=== PATIENT | female | born 1945 | race Caucasian/White ===

== ENCOUNTER 2016-07-19 01:51 | Emergency (ER) | payer MEDICAID, MEDICARE ==
[2016-07-19 02:28] VITALS: BMI 41.1
[2016-07-19] MEDS ORDERED: ONDANSETRON HCL 4 MG ODT TAB PO ONE (02:57)
[2016-07-19] MEDS ORDERED: OXYCODONE HCL 5 MG TABLET PO ONE (02:57)
--- NOTE | 2016-07-19 03:04 | EDPRACDOC ---
- History of Present Illness Onset: 1800 HPI: PT STATES SHE GOT TRIPPED UP FELL HIT THE BACK OF HER HEAD ON FURNITURE THEN LANDED ON HER BUTT. PT C/O HEADACHE NECK PAIN, LOW BACK PAIN AND TAILBONE PAIN. NO NUMBNESS OR TINGLING DOWN LEGS NO LOSS OF BOWEL OR BLADDER AT THIS TIME. PT A &OX3. NO N/V OR LOC. Pain Severity: Reports: Moderate Injuries/Pain Location: Reports: head, neck, back, other (TAILBONE) Reason for Fall: Reports: tripped Loss of Consciousness: no loss of consciousness Associated Symptoms (Fall): Reports: neck pain, other (TAILBONE AND LOWER BACK PAIN) <Michael Novak - Last Filed: 07/19/16 03:02> <Patricia Farris - Last Filed: 07/19/16 04:35> - General Chief Complaint: Fall Stated Complaint: FALL: HEAD AND TAILBONE PAIN Time Seen by Provider: 07/19/16 02:40 - History of Present Illness Allergies/Adverse Reactions: Allergies hydromorphone HCl [From Dilaudid] Allergy (Verified 04/06/16 02:35) Unknown morphine Allergy (Verified 04/06/16 02:35) Unknown Home Medications: Ambulatory Orders Alprazolam [Xanax] 1 mg PO Q8H PRN 05/24/15 Colesevelam HCl [Welchol] 1,250 mg PO TID 05/24/15 Escitalopram Oxalate [Lexapro] 10 mg PO DAILY 05/24/15 Estrogens [Premarin 1.25 mg Tablet] 1.25 mg PO DAILY 05/24/15 Furosemide [Lasix] 40 mg PO BID 05/24/15 Glimepiride [Amaryl] 4 mg PO DAILY 05/24/15 Insulin Glargine,Hum.rec.anlog [Lantus] 50 units SQ HS 05/24/15 Isosorbide Mononitrate [Imdur] 60 mg PO DAILY 05/24/15 Levothyroxine Sodium [Synthroid] 200 mcg PO DAILY 05/24/15 Liraglutide [Victoza 0.6 mg/0.1 ml] 1.2 mg SQ DAILY 05/24/15 Metoprolol Tartrate 25 mg PO BID 05/24/15 Oxycodone HCl/Acetaminophen [Percocet 10-325 mg Tablet] 1 each PO Q8H PRN Sertraline HCl [Zoloft] 50 mg PO DAILY 05/24/15 Simvastatin [Zocor] 10 mg PO DAILY 05/24/15 Spironolactone [Aldactone] 25 mg PO DAILY 05/24/15 Albuterol Sulfate MDI [Proventil HFA] 1 puff INH Q4 PRN 04/05/16 Aspirin 325 mg PO DAILY 04/05/16 Fluticasone/Salmeterol [Advair 250-50] 1 inh INH BID 04/05/16 Gabapentin 600 mg PO BID PRN 04/05/16 Insulin Glulisine [Apidra] 60 units SQ .PRN PRN 04/05/16 Losartan/Hydrochlorothiazide [Losartan-Hctz 50-12.5 mg Tab] 1 each PO DAILY Meclizine HCl 25 mg PO TID PRN 04/05/16 Potassium Chloride [Klor-Con 10] 10 meq PO DAILY 04/05/16 Ranolazine [Ranexa] 1,000 mg PO BID 04/05/16 Tiotropium [place] [Spiriva] 18 mcg INH DAILY 04/05/16 Cephalexin Monohydrate [Keflex] 500 mg PO Q6H #40 cap 07/19/16 Hydrocodone Bit/Acetaminophen [Hydrocodon-Acetaminophen 5-325] 1 - 2 tab PO Q4H PRN #20 tab 07/19/16 ED Past Medical History - History Reviewed Yes Nurses notes reviewed and agree except as marked Travel Outside of [place] in the Last 3 Months?: No - Patient Medical History Neurological History: Reports: Cerebrovascular Accident Cardiac History: Reports: Atrial Fibrillation, Hypertension, Congestive Heart Failure, Cardiac Catheterization, Hypercholesterolemia Respiratory History: Reports: COPD. Denies: Pneumonia GI/ History: Reports: Urinary Tract Infection, Gastroesophageal Reflux Psychological History: Reports: Depression, Anxiety. Denies: Bipolar Disorder, Substance Use Disorder Systemic History: Reports: Diabetes, Hypothyroidism. Denies: Cancer Surgical History: Reports: Appendectomy, Cholecystectomy, Cardiac Catheterization, Tonsillectomy/Adnoidectomy - Family Medical History Reports: Hypertension (dtr), Diabetes (dtr), Cancer (dtr: brst [place]), Cardiac Disorders (Younger sister and a daughter with coronary artery disease.). Denies : Stroke - Social Medical History Smoking Status: Never smoker Social History: Denies: Substance Use Disorder ETOH: None Substance Abuse: None Lives With: Other Lives In: Home <Michael Novak - Last Filed: 07/19/16 03:02> EDM Review of Systems - Review of Systems ROS Negative Except as Marked: Yes All systems reviewed and were negative except as marked Constitutional: No Symptoms Reported. negative: Fever, Chills, Weakness, Fatigue, Loss of Appetite Eyes: No Symptoms Reported. negative: Redness, Blurred Vision, Double Vision, Discharge, Pain, Light Sensitive, Photophobia Ears: No Symptoms Reported. negative: Pain, Hearing Loss, Drainage, Ear Pulling Throat: No Symptoms Reported. negative: Pain, Swelling Nose: No Symptoms Reported. negative: Congestion, Bleeding, Discharge, Injection, Swelling, Deformity, Ecchymosis, Tender, Abrasion, Laceration Mouth: No Symptoms Reported. negative: Pain, Drooling Respiratory: No Symptoms Reported. negative: Cough, Brassy Cough, Barky Cough, Shortness of Breath, Wheezing, Hemoptysis Cardiovascular: No Symptoms Reported. negative: Chest Pain, Palpitations, Syncope, Edema, Orthopnea, PND, Skin Mottling, Cyanosis Gastrointestinal: No Symptoms Reported. negative: Pain, Constipation, Nausea, Vomiting, Diarrhea, Melena, Formula Intolerance Genitourinary: No Symptoms Reported. negative: Dysuria, Hematuria, Frequency, Discharge, Bleeding, Testicular Pain, Neurological: No Symptoms Reported. negative: Headache, Dizziness, Seizure, Numbness, Weakness, Speech Difficulty, Gait Difficulty Musculoskeletal: Back, Neck, Other (TAILBONE PAIN). negative: Arm, Ankle, Chestwall, Elbow, Forearm, Femur, Foot, Hand, Hip, Knee, Leg, Pelvis, Ribs, Shoulder, Wrist Integumentary: No Symptoms Reported. negative: Itching, Rash, Bruising, Wound Allergic/Immunologic: No Symptoms Reported. negative: Hives, Itching Hematologic: No Symptoms Reported. negative: Lymphadenopathy, Easy Bruising, Easy Bleeding Endocrine: No Symptoms Reported. negative: Weight Gain, Weight Loss Psychiatric: No Symptoms Reported. negative: Anxiety, Depression, Hallucinations, Insomnia, Suicidal <Michael Novak - Last Filed: 07/19/16 03:02> - Physical Exam Constitutional: No apparent distress, Alert (Awake) Oriented to: Time, Person, Place Last recorded Vital Signs: Last Vital Signs Temp 97.9 F 07/19/16 02:09 Pulse 67 07/19/16 02:09 Resp 20 07/19/16 02:09 BP 119/61 07/19/16 02:09 Pulse Ox 96 07/19/16 02:09 Oxygen Pulse Oxygen Saturation 96 O2 Device Room Air Oxygen Flow Rate Fraction of Inspired Oxygen ( FIO2) - HEENT Head: Normal ( normocephalic) Eye Exam: Normal (PERRL, EOMI, Sclera white) Oropharynx: Normal (Pharynx:Moist without exudate,Gums-no swelling) Tympanic Membrane: Normal ENT EAC: Normal TMJ: Normal Nose: No Symptoms Reported (septum midline) Neck: Normal (FROM, trachea at midline) - Respiratory/Cardiovascular Respiratory: Normal - CTA (BBS clear to auscultation without adventitious sounds ) Cardiovascular: Normal (RRR without murmur, gallop or rub) - GI Auscultation: Normal (NABS) Palpation: Normal (Soft,No rebound or guarding, non distended) Tenderness: Non tender Briggs's Sign: Negative - Bladder: Normal - Musculoskeletal Back: Lumbar TTP Extremities: Normal (Normal tone, Pulses 2+ No cyanosis or edema, FROM) Musculoskeletal Comment: MILD TENDERNESS TO CERVICAL SPINE - Integumentary Skin: Normal, Warm, Dry Lymphatics: Normal (no adenopathy) - Neurologic Memory Impaired: Normal Motor Function: Normal (Normal tone, Pulses 2+ No cyanosis or edema, FROM) Cranial Nerve: Normal (CN II-X11 intact sensation, strength 5/5) Cerebellar: Normal Mood Description: Normal Perception: Normal <Michael Novak - Last Filed: 07/19/16 03:02> - Physical Exam Last recorded Vital Signs: Last Vital Signs Temp 97.9 F 07/19/16 02:09 Pulse 67 07/19/16 02:09 Resp 20 07/19/16 02:09 BP 119/61 07/19/16 02:09 Pulse Ox 96 07/19/16 02:09 Oxygen Pulse Oxygen Saturation 96 O2 Device Room Air Oxygen Flow Rate Fraction of Inspired Oxygen ( FIO2) <Patricia Farris - Last Filed: 07/19/16 04:35> ED Injury/Fall Exam - Physical Exam Head Injury: tenderness (OCCIPITAL REGION AT BASE OF SKULL) Extremity Exam: no evidence of injury Skin: Normal - Abbi Coma Score Best Eye Response ([place]): (4) open spontaneously Best Verbal Response ([place]bi): (5) oriented Best Motor Response (Abbi): (6) obeys commands [place] Total: 15 <Michael Novak - Last Filed: 07/19/16 03:02> - Differential Diagnosis Contusion, Fall, Fracture, Mechanical Fall, Sprain, Strain <Michael Novak - Last Filed: 07/19/16 03:02> - Results Urine Color Yellow 07/19/16 03:45 Urine Clarity Sl cldy 07/19/16 03:45 Urine pH 6.0 (5.0-8.0) 07/19/16 03:45 Ur Specific [place] 1.020 (1.003-1.035) 07/19/16 03:45 Urine Protein 1+ (NEG/TRACE) H 07/19/16 03:45 Urine Glucose (UA) Trace (NEGATIVE) 07/19/16 03:45 Urine Ketones Neg (NEGATIVE) 07/19/16 03:45 Urine Occult Blood Neg (NEG/TRACE) 07/19/16 03:45 Urine Nitrite Neg (NEGATIVE) 07/19/16 03:45 Urine Bilirubin Neg (NEGATIVE) 07/19/16 03:45 Urine Urobilinogen <2.0 MG/DL (0-1) 07/19/16 03:45 Ur Leukocyte Esterase 2+ (NEGATIVE) H 07/19/16 03:45 Urine RBC 2-5 (0-5) 07/19/16 03:45 Urine WBC Tntc (0-5) H 07/19/16 03:45 Ur Epithelial Cells 1+ 07/19/16 03:45 Urine Bacteria 4+ (NEG/FEW) H 07/19/16 03:45 Hyaline Casts 10-20 (0-2) H 07/19/16 03:45 Urine Mucus Sm amt (NEG/OCC) 07/19/16 03:45 Lab Results 07/19/16 03:45 Urine Color Yellow Urine Clarity Sl cldy Urine pH 6.0 Ur Specific [place] 1.020 Urine Protein 1+ H Urine Glucose (UA) Trace Urine Ketones Neg Urine Occult Blood Neg Urine Nitrite Neg Urine Bilirubin Neg Urine Urobilinogen <2.0 Ur Leukocyte Esterase 2+ H Urine RBC 2-5 Urine WBC Tntc H Ur Epithelial Cells 1+ Urine Bacteria 4+ H Hyaline Casts 10-20 H Urine Mucus Sm amt - Diagnostic Imaging Pelvis Image interpreted by: Radiologist Patient Name: IESHA SEWELL LOC: ED : 1945 AGE: 70 Order Date:07/19/16 Date of Service:06/23 Report # [id number] Ord Physician: Michael Novak Exam # [id number] Emergency Physician: Provider,ER Exam(s): [id number] RAD/DG SACRUM/COCCYX 2+V CLINICAL DATA: Lost balance and fell on tailbone, now with sacrococcygeal pain. EXAM: SACRUM AND COCCYX - 2+ VIEW COMPARISON: CT reformats 06/18/2016 FINDINGS: There is cortical offset at the sacrococcygeal junction most concerning for acute minimally displaced fracture. These is new from prior CT. The sacral ala are maintained. Sacroiliac joints are congruent. IMPRESSION: Minimally displaced fracture at the sacrococcygeal junction. Electronically Signed By: Olga Lidia Gonsales M.D. On: 07/19/2016 03:43 Electronically Signed By: Olga Lidia Gonsales MD Electronically Signed Date/Time: Dictate Date/Time: 07/19/16340 Technologist: Rebecca Purdy Transcribed By: Coleman Transcribed Date/Time: 07/19/16 0343 Head Image interpreted by: Radiologist Patient Name: IESHA SEWELL LOC: ED : 1945 AGE: 70 Order Date:07/19/16 Date of Service:06/23 Report # [id number] Ord Physician: Michael Novak Exam # [id number] Emergency Physician: Patricia Farris MD Exam(s): [id number] CT/CT HEAD-CT CERV SPINE W/O CM CLINICAL DATA: 70-year-old female with fall EXAM: CT HEAD WITHOUT CONTRAST CT CERVICAL SPINE WITHOUT CONTRAST TECHNIQUE: Multidetector CT imaging of the head and cervical spine was performed following the standard protocol without intravenous contrast. Multiplanar CT image reconstructions of the cervical spine were also generated. COMPARISON: Head CT dated 06/18/2016 FINDINGS: CT HEAD FINDINGS The ventricles and sulci are appropriate in size for patient's age. Mild periventricular and deep white matter hypodensities represent chronic microvascular ischemic changes. Small stable right cerebellar old infarct. There is no intracranial hemorrhage. No mass effect or midline shift identified. There is complete opacification of the frontal sinuses. The remainder of the paranasal sinuses and mastoid air cells are well aerated. The calvarium is intact. CT CERVICAL SPINE FINDINGS There is no acute fracture or subluxation of the cervical spine.Multilevel degenerative changes.The odontoid and spinous processes are intact.There is normal anatomic alignment of the C1-C2 lateral masses. The visualized soft tissues appear unremarkable. IMPRESSION: No acute intracranial hemorrhage. Mild age-related atrophy and chronic microvascular ischemic disease. No acute/traumatic cervical spine pathology. Electronically Signed By: Francis Kumar M.D. On: 07/19/2016 04:07 Electronically Signed By: Francis Kumar MD Electronically Signed Date/Time: [id number] Dictate Date/Time: 07/19/16 0355 Technologist: Jolanta Mariano Transcribed By: Coleman Transcribed Date/Time: 07/19/16 0407 L-Spine Image interpreted by: Radiologist Patient Name: IESHA SEWELL LOC: ED : 1945 AGE: 70 Order Date:07/19/16 Date of Service:06/23 Report # [id number] Ord Physician: Michael Novak Exam # [id number] Emergency Physician: Provider,ER Exam(s): [id number] RAD/DG LUMBAR SPINE COMPLETE 4+V CLINICAL DATA: Lost balance and fell landing on tailbone, now with lumbosacral and sacral coccygeal pain. EXAM: LUMBAR SPINE - COMPLETE 4+ VIEW COMPARISON: None. FINDINGS: Vertebral body heights are normal. There is no listhesis. The posterior elements are intact. There is disc space narrowing at L5-S1. Facet arthropathy at L4-L5 and L5-S1, minimal anterolisthesis of L4 on L5 appears degenerative. No fracture. Sacroiliac joints are symmetric and normal. Buckling of the sacrococcygeal junction, better assessed on concurrently performed sacrum and coccyx views. IMPRESSION: 1. No acute fracture or subluxation of the lumbar spine. 2. Sacrococcygeal fracture, assessed on concurrently performed sacrum exam. 3. Degenerative change in the lower lumbar spine with degenerative disc disease and facet arthropathy. Electronically Signed By: Olga Lidia Gonsales M.D. On: 07/19/2016 03:41 Electronically Signed By: Olga Lidia Gonsales MD Electronically Signed Date/Time: 344 Dictate Date/Time: 07/19/16 0338 Technologist: Rebecca Purdy Transcribed By: Coleman Transcribed Date/Time: 07/19/16 0341 <Patricia Farris - Last Filed: 07/19/16 04:35> <Michael Novak - Last Filed: 07/19/16 03:02> - Departure Disposition: Home Education/Counseling Given To: Patient, Family Member Education/Counseling Given Regarding: Diagnosis, Treatment, Prognosis <Patricia Farris - Last Filed: 07/19/16 04:35> - Departure Condition: Good Final Diagnosis: Accidental fall Lumbar spine strain Qualifiers: Encounter type: initial encounter Qualified Code(s): S39.012A - Strain of muscle, fascia and tendon of lower back, initial encounter Fractured coccyx Qualifiers: Encounter type: initial encounter Fracture type: closed Qualified Code(s): S32.2XXA - Fracture of coccyx, initial encounter for closed fracture Urinary tract infection Qualifiers: Urinary tract infection type: acute cystitis Instructions: Core Strengthening Exercises (GEN), Back Pain, RICE: Routine Care for Injuries, Thoracic (Lumbar) Strain, Urinary Tract Infection in Women ( ED), Dysuria Referrals: Peter Pierre MD [Primary Care Provider] - One Week Prescriptions: Cephalexin Monohydrate [Keflex] 500 mg PO Q6H #40 cap Hydrocodone Bit/Acetaminophen [Hydrocodon-Acetaminophen 5-325] 1 - 2 tab PO Q4H PRN #20 tab PRN Reason: Pain
--- NOTE | 2016-07-19 03:44 | DIRPT ---
CLINICAL DATA: Lost balance and fell landing on tailbone, now with lumbosacral and sacral coccygeal pain. EXAM: LUMBAR SPINE - COMPLETE 4+ VIEW COMPARISON: None. FINDINGS: Vertebral body heights are normal. There is no listhesis. The posterior elements are intact. There is disc space narrowing at L5-S1. Facet arthropathy at L4-L5 and L5-S1, minimal anterolisthesis of L4 on L5 appears degenerative. No fracture. Sacroiliac joints are symmetric and normal. Buckling of the sacrococcygeal junction, better assessed on concurrently performed sacrum and coccyx views. IMPRESSION: 1. No acute fracture or subluxation of the lumbar spine. 2. Sacrococcygeal fracture, assessed on concurrently performed sacrum exam. 3. Degenerative change in the lower lumbar spine with degenerative disc disease and facet arthropathy. Electronically Signed By: Olga Lidia Gonsales M.D. On: 07/19/2016 03:41
--- NOTE | 2016-07-19 03:45 | DIRPT ---
CLINICAL DATA: Lost balance and fell on tailbone, now with sacrococcygeal pain. EXAM: SACRUM AND COCCYX - 2+ VIEW COMPARISON: CT reformats 06/18/2016 FINDINGS: There is cortical offset at the sacrococcygeal junction most concerning for acute minimally displaced fracture. These is new from prior CT. The sacral ala are maintained. Sacroiliac joints are congruent. IMPRESSION: Minimally displaced fracture at the sacrococcygeal junction. Electronically Signed By: Olga Lidia Gonsales M.D. On: 07/19/2016 03:43
--- NOTE | 2016-07-19 04:10 | DIRPT ---
CLINICAL DATA: 70-year-old female with fall EXAM: CT HEAD WITHOUT CONTRAST CT CERVICAL SPINE WITHOUT CONTRAST TECHNIQUE: Multidetector CT imaging of the head and cervical spine was performed following the standard protocol without intravenous contrast. Multiplanar CT image reconstructions of the cervical spine were also generated. COMPARISON: Head CT dated 06/18/2016 FINDINGS: CT HEAD FINDINGS The ventricles and sulci are appropriate in size for patient's age. Mild periventricular and deep white matter hypodensities represent chronic microvascular ischemic changes. Small stable right cerebellar old infarct. There is no intracranial hemorrhage. No mass effect or midline shift identified. There is complete opacification of the frontal sinuses. The remainder of the paranasal sinuses and mastoid air cells are well aerated. The calvarium is intact. CT CERVICAL SPINE FINDINGS There is no acute fracture or subluxation of the cervical spine.Multilevel degenerative changes.The odontoid and spinous processes are intact.There is normal anatomic alignment of the C1-C2 lateral masses. The visualized soft tissues appear unremarkable. IMPRESSION: No acute intracranial hemorrhage. Mild age-related atrophy and chronic microvascular ischemic disease. No acute/traumatic cervical spine pathology. Electronically Signed By: Francis Kumar M.D. On: 07/19/2016 04:07
[2016-07-19 04:18] LABS: LEUKOCYTES/URINE 2+ (NEGATIVE); NITRITE/URINE NEG (NEGATIVE); URINE OCCULT BLOOD NEG (NEG/TRACE); WBC/URINE TNTC (0-5)
[2016-07-19 04:52] VITALS: BP 121/72; PULSE 70; TEMP 98
== END 2016-07-19 04:49 | disposition home or self-care (01) ==
LOC: ED 01:51
DX: S39.012A Strain of muscle, fascia and tendon of lower back, initial encounter (principal); S32.2XXA Fracture of coccyx, initial encounter for closed fracture; N30.00 Acute cystitis without hematuria
CPT/HCPCS: 70450; 72110; 72125; 72220; 81001; 99283; A9270; J3490